=== PATIENT | male | born 1950 | race Two or more races ===

== ENCOUNTER 2024-06-08 10:11 | Emergency (ER) | payer OTHER ==
[~2024-06-08] VITALS: Ht 182.9 cm; Wt 66.3 kg
[2024-06-08 10:30] VITALS: RESP 16; TEMP 98.1; O2SAT 98
[2024-06-08 10:45] LABS: Basophils # (auto) 0 10 ^3/uL (0-0.2); Basophils % (auto) 0.3 % (0.0-2.0); Eosinophils # (auto) 0 10 ^3/uL (0-0.8); Eosinophils % (auto) 0.1 % (0.0-7.0); Hematocrit 42.7 % (41.0-53.0); Hemoglobin 14.6 g/dL (13.5-17.5); Lymphocytes % (auto) 15.3 % (10.0-50.0); Mean Corpuscular Hemoglobin 31.5 pg (28.0-32.0); Mean Corpuscular Hgb Conc. 34.2 g/dL (32.0-36.0); Mean Corpuscular Volume 91.9 fL (80.0-100.0); Monocytes # (auto) 0.4 10 ^3/uL (0-1.3); Monocytes % (auto) 6.4 % (0.0-12.0); Neutrophils # (auto) 4.9 10 ^3/uL (1.6-8.6); Neutrophils % (auto) 77.9 % (37.0-80.0); Platelet Count (auto) 130 10^3/uL (140-450); Red Blood Cells 4.65 10^6/uL (4.5-5.90); Red Cell Distribution Width 14.1 % (11.8-14.3); White Blood Cell 6.3 10^3/uL (4.4-10.8)
[2024-06-08 10:58] LABS: Alanine Aminotransferase 18 U/L (7-40); Albumin 4.4 g/dL (3.2-4.8); Alkaline Phosphatase 68 U/L (46-116); Anion Gap 6 (5-15); Aspartate Aminotransferase 21 U/L (13-40); BUN/Creatinine Ratio 14.9 (10.0-20.0); Bilirubin, Total 0.8 mg/dL (0.2-1.0); Blood Urea Nitrogen 15 mg/dL (9-23); Calcium 9.4 mg/dL (8.7-10.4); Carbon Dioxide 26 mmol/L (20-30); Chloride 107 mmol/L (98-107); Glucose 133 mg/dL (74-106); Potassium 4.4 mmol/L (3.5-5.1); Sodium 139 mmol/L (136-145); Total Protein 6.6 g/dL (5.7-8.2)
[2024-06-08 12:00] VITALS: BP 121/79; PULSE 87; RESP 16; O2SAT 98
== END 2024-06-08 14:27 | disposition home or self-care (01) ==
LOC: EDBD 10:11 → ER 10:17
DX: I48.91 Unspecified atrial fibrillation (principal); R79.89 Other specified abnormal findings of blood chemistry; I10 Essential (primary) hypertension
CPT/HCPCS: 36415; 71045; 80053; 83735; 84443; 84484; 85025; 93005

== ENCOUNTER 2025-05-07 07:45 | Inpatient (IN) | payer OTHER ==
[~2025-05-07] VITALS: Ht 185.4 cm; Wt 63.1 kg
[~2025-05-07 07:45] MED LIST: DABI150C7 PO; LOS25T PO; METO25TA5 PO
--- NOTE | 2025-05-07 07:50 | ED.PDOC ---
HPI Comments 75-year-old male presents here with palpitations and chest discomfort. He states the palpitations woke him up from his sleep. He states his heart was beating fast. He has a known history of atrial fibrillation and is currently on metoprolol and Pradaxa. He has a [place] member. He states he has been on this medication fo 1 year and has not had an issues until this morning. He has been compliant with his medications. Denies any recent cough cold runny nose fever or chills. He had some chest discomfort during the palpitations but states it was mild and has self-resolved. He states the palpitations have since resolved and he currently feels well. He plans to make an appointment with his [place] branch general manager later this week. Chief Complaint: Palpitations Time Seen by MD: 07:50 Primary Care Provider: KADI Reviewed Notes: Nurses Notes, Medications, Allergies Allergies: Coded Allergies: NO KNOWN ALLERGIES (Unverified , 06/08/24) Information Source: Patient Mode of Arrival: Ambulatory Severity: Moderate Duration: Since onset Prehospital treatment: None Location: Chest (L) Radiation: No Radiation Onset: At Rest Cardiac Risk Factors: HTN PE Risk Factors: None History of: None Modifying Factors: Nothing Associated Signs and Symptoms: None Past Medical History PAST MEDICAL HISTORY: AFIB, HTN Surgical History: Denies all surgeries Family History Family History: Reviewed,noncontributory to illness Social History Smoker: Non-Smoker Alcohol: Denies ETOH Use Drugs: Denies Drug Use Lives In: Home Constitutional: denies: chills, diaphoresis, fatigue, fever, malaise, sweats, weakness, others EENTM: denies: blurred vision, double vision, ear bleeding, ear discharge, ear drainage, ear pain, ear ringing, eye pain, eye redness, hearing loss, mouth pain, mouth swelling, nasal discharge, nose bleeding, nose congestion, nose pain, photophobia, tearing, throat pain, throat swelling, voice changes, others Respiratory: denies: cough, hemoptysis, orthopnea, SOB at rest, shortness of breath, SOB with excertion, stridor, wheezing, others Cardiovascular: reports: chest pain, palpitations; denies: dizzy spells, diaphoresis, Dyspnea on exertion, edema, irregular heart beat, left arm pain, lightheadedness, PND, syncope, others Gastrointestinal: denies: abdomen distended, abdominal pain, blood streaked bowels, constipated, diarrhea, dysphagia, difficulty swallowing, hematemesis, melena, nausea, poor appetite, poor fluid intake, rectal bleeding, rectal pain, vomiting, others Genitourinary: denies: burning, dysuria, flank pain, frequency, hematuria, incontinence, penile discharge, penile sore, pain, testicle pain, testicle swelling, urgency, others Neurological: denies: dizziness, fainting, headache, left sided numbness, left sided weakness, numbness, paresthesia, pre-existing deficit, right sided numbness, right sided weakness, seizure, speech problems, tingling, tremors, w eakness, others Musculoskeletal: denies: back pain, gout, joint pain, joint swelling, muscle pain, muscle stiffness, neck pain, others Integumetry: denies: bruises, change in color, change in hair/nails, dryness, laceration, lesions, lumps, rash, wounds, others Allergic/Immunocompromised: denies: Difficulty Healing, Frequent Infections, Hives, Itching, others Hematologic/Lymphatic: denies: anemia, blood clots, easy bleeding, easy bruising, swollen glands, others Endocrine: denies: excessive hunger, excessive sweating, excessive thirst, excessive urination, flushing, intolerance to cold, intolerance to heat, unexplained weight gain, unexplained weight loss, others Psychiatric: denies: anxiety, bipolar disorder, depression, hopeless, panic disorder, schizophrenia, sleepless, suicidal, others All Other Systems: Reviewed and Negative Physical Exam General Appearance: No Apparent Distress, Normal HEENT: Normal ENT Inspection, Pharynx Normal Neck: Full Range of Motion, Non-Tender, Normal, Normal Inspection Respiratory: Chest Non-Tender, Lungs Clear, No Accessory Muscle Use, No Respiratory Distress, Normal Breath Sounds Cardiovascular: No Edema, No Murmur, No Gallop, Normal Peripheral Pulses, Regular Rate/Rhythm Breast Exam: Deferred Gastrointestinal: No Organomegaly, Non Tender, No Pulsatile Mass, Normal Bowel Sounds, Soft Genitalia: Deferred Pelvic: Deferred Rectal: Deferred Extremities: No calf tenderness, Normal capillary refill, Normal inspection, Normal range of motion, Non-tender, No pedal edema Musculoskeletal : Apperance: Normal Neurologic: Alert, No Motor Deficits, Normal Affect, Normal Mood, No Sensory Deficits Cerebellar Function: Normal Reflexes: Normal Skin: Dry, Normal Color, Warm Lymphatic: No Adenopathy EKG EKG #1: Comments Rate of 95 sinus rhythm left ventricular hypertrophy nonspecific ST changes EKG #2: Comments EKG 2. Rate of 81 normal sinus rhythm no significant ST changes Was a procedure done? Was a procedure done?: No CP Differential Dx Differential Diagnosis: A-fib, A-Flutter, Angina, AV Block 1st Degree, AV Block 2nd Degree, AV Block 3rd Degree, Electrolyte Disorder, PSVT, Pulmonary Embolus, Sinus Tachycardia, Other (nstemi) Differential Diagnosis: N/A Differential Diagnosis: Chest Wall Pain, Myocardial Infarction, Pneumonia, Pneumothorax, Pulmonary Embolus, Other X-Ray, Labs, Meds, VS Vital Signs Date Time Temp Pulse Resp B/P (MAP) Pulse Ox O2 Delivery O2 Flow Rate FiO2 05/07/25 09:25 94 18 145/80 (101) 98 05/07/25 09:25 94 18 98 Room Air 05/07/25 08:56 81 05/07/25 07:54 95 05/07/25 07:47 98.0 89 15 107/70 97 98.0 Lab Test 05/07/25 11:05 05/07/25 09:06 05/07/25 08:05 Range/Units Troponin I High Sensitivity 186 *H 71 *H 39 </=54 ng/L White Blood Count 6.0 4.4-10.8 10^3/uL Red Blood Count 5.00 4.5-5.90 10^6/uL Hemoglobin 15.3 13.5-17.5 g/dL Hematocrit 45.4 41.0-53.0 % Mean Corpuscular Volume 90.6 80.0-100.0 fL Mean Corpuscular Hemoglobin 30.6 28.0-32.0 pg Mean Corpuscular Hemoglobin Concent 33.7 32.0-36.0 g/dL Red Cell Distribution Width 13.8 11.8-14.3 % Platelet Count 145 140-450 10^3/uL Mean Platelet Volume 9.2 6.9-10.8 fL Neutrophils (%) (Auto) 75.6 37.0-80.0 % Lymphocytes (%) (Auto) 17.2 10.0-50.0 % Monocytes (%) (Auto) 6.5 0.0-12.0 % Eosinophils (%) (Auto) 0.2 0.0-7.0 % Basophils (%) (Auto) 0.5 0.0-2.0 % Neutrophils # (Auto) 4.5 1.6-8.6 10 ^3/uL Lymphocytes # (Auto) 1.0 0.4-5.4 10 ^3/uL Monocytes # (Auto) 0.4 0-1.3 10 ^3/uL Eosinophils # (Auto) 0 0-0.8 10 ^3/uL Basophils # (Auto) 0 0-0.2 10 ^3/uL Nucleated Red Blood Cells 0.2 % Sodium Level 139 136-145 mmol/L Potassium Level 4.3 3.5-5.1 mmol/L Chloride Level 105 98-107 mmol/L Carbon Dioxide Level 23 20-31 mmol/L Anion Gap 11 5-15 Blood Urea Nitrogen 9 9-23 mg/dL Creatinine 1.08 0.700-1.30 mg/dL Glomerular Filtration Rate Calc 71 >90 mL/min BUN/Creatinine Ratio 8.3 L 10.0-20.0 Serum Glucose 123 H 74-106 mg/dL Calcium Level 9.5 8.7-10.4 mg/dL Magnesium Level 2.1 1.6-2.6 mg/dL 75-year-old male presents here with a palpitations and chest discomfort. He has a known history of atrial fibrillation and states the palpitations woke him up from sleep this morning. His EKG at this time does not demonstrate that he has AFib. Clinically he also feels well no longer has palpitations. I have ordered a CBC, BMP and magnesium level to determine his electrolyte levels to see if any need repletion. CBC has returned normal BMP within normal limits however 1st set troponin is 39, 2nd is 71 and 3rd is 186. I have spoken to [facility] spoke to Dr. Huff at [facility] who has agreed for us to admit the patient in our hospital Authorization number is [id number]. Magnesium level is normal. Does not require repletion. Chest x-ray with no evidence of acute pathology. Patient has been given aspirin in the ER. Time of 1ST Reevaluation: 08:20 Reevaluation 1ST: Unchanged Time of 2ND Reevaluation: 12:00 Reevaluation 2ND: Unchanged Patient Education/Counseling: Diagnosis, Treatment Family Education/Counseling: No Family Present SEPSIS Sepsis Screen Physician Orders Electrocardigram (05/07/25 10:53) Chest Two Views Routine (05/07/25 11:50) Aspirin Tablet (05/07/25 12:00) Vital Signs Date Time Temp Pulse Resp B/P (MAP) Pulse Ox O2 Delivery O2 Flow Rate FiO2 05/07/25 09:25 94 18 145/80 (101) 98 05/07/25 09:25 94 18 98 Room Air 05/07/25 08:56 81 05/07/25 07:54 95 05/07/25 07:47 98.0 89 15 107/70 97 98.0 Laboratory Tests Test 05/07/25 08:05 White Blood Count 6.0 10^3/uL (4.4-10.8) Departure 1 Departure Time of Disposition: 12:04 Impression: Primary Impression: Atrial fibrillation Qualified Codes: I48.0 - Paroxysmal atrial fibrillation Additional Impression: NSTEMI (non-ST elevated myocardial infarction) Disposition: ADMITTED INPATIENT Condition: Guarded Additional Instructions: Follow up with the [place] branch general manager this week. Return to the ER if symptoms worsen or persist. Critical Care Note Critical Care Time?: Yes (35 min-critical care time only) Critical care comment: Time spent re-evaluating patient, speaking to nursing staff, speaking to laboratory regarding his elevated troponins., consulting Cardiology, speaking to [place] re-evaluating results including lab Stability Stability form required: No Heart Score Heart Score: Heart Score Response (Comments) Value History Slightly Suspicious 0 EKG Repolarization Disturb 1 Age >65 2 Risk Factors 1 or 2 risk factors 1 Troponin >3 x's Normal limit 2 Total 6 I personally scribed for MADDY LINTON MD ([email or web address]) on 05/07/25 at 07:50. Electronically submitted by Ania Mendoza ([email or web address]). I personally scribed for MADDY LINTON MD ([email or web address]) on 05/07/25 at 07:52. Electronically submitted by Ania Mendoza ([email or web address]). I personally scribed for MADDY LINTON MD ([email or web address]) on 05/07/25 at 07:54. Electronically submitted by Ania Mendoza ([email or web address]). I personally scribed for MADDY LINTON MD ([email or web address]) on 05/07/25 at 08:05. Electronically submitted by Ania Mendoza ([email or web address]). MADDY LINTON MD May 07, 2025 07:50
--- NOTE | 2025-05-07 07:55 | ECG ---
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
[2025-05-07 08:24] LABS: Hematocrit 45.4 % (41.0-53.0); Hemoglobin 15.3 g/dL (13.5-17.5); Mean Corpuscular Hemoglobin 30.6 pg (28.0-32.0); Mean Corpuscular Volume 90.6 fL (80.0-100.0); Nucleated Red Blood Cells % 0.2 %
[2025-05-07 08:50] LABS: Anion Gap 11 (5-15); Carbon Dioxide 23 mmol/L (20-31); Chloride 105 mmol/L (98-107); Potassium 4.3 mmol/L (3.5-5.1); Sodium 139 mmol/L (136-145)
[2025-05-07 08:51] LABS: Calcium 9.5 mg/dL (8.7-10.4)
[2025-05-07 08:56] LABS: BUN/Creatinine Ratio 8.3 (10.0-20.0); Blood Urea Nitrogen 9 mg/dL (9-23); Glucose 123 mg/dL (74-106); Magnesium 2.1 mg/dL (1.6-2.6)
--- NOTE | 2025-05-07 08:57 | ECG ---
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
--- NOTE | 2025-05-07 12:12 | DVH ---
CHEST RADIOGRAPH Indication: chest pain Technique: Frontal and lateral view of the chest was obtained Comparison: XY CHEST PORTABLE on DOS: 06/08/24 FINDINGS: Lines and Tubes: None Lungs: Lungs are hyperinflated suggestive of COPD. Pleura: No effusion. No pneumothorax. Cardiomediastinal contours: Unremarkable Bones: Unremarkable IMPRESSION: Lungs are hyperinflated suggestive of COPD. There is no consolidation, pneumothorax or effusion.
[2025-05-07] MEDS ORDERED: ROSU20TA56 PO (13:33)
--- NOTE | 2025-05-07 13:37 | DVHHP2 ---
History of Present Illness Reason for Visit: Chest palpitations History of Present Illness 78-year-old male with past medical history of hypertension, atrial fibrillation on Pradaxa and metoprolol, and hyperlipidemia presents to the ED with complaint of palpitations. The patient reports that he woke up this morning with a sens ation of chest palpitations, which prompted his visit to the ER. He denies associated chest pain, shortness of breath, dizziness, syncope, or diaphoresis. He denies cough, fever, or recent illnesses. He reports compliance with his medications. He denies tobacco use, alcohol, or illicit drug use. Past Medical History As stated in HPI Past Surgical History Abdominal surgery from an injury Family History Reviewed, non-contributory to the management of this case. Past Social History The patient lives at home, denies smoking, alcohol or illicit drugs abuse. Review of Systems Constitutional: No: Fever, Chills, Sweats, Weakness, Malaise, Other Eyes: No: Pain, Vision change, Conjunctivae inflammation, Eyelid inflammation, Other, Redness ENT: No: Ear pain, Ear discharge, Nose pain, Nose discharge, Nose congestion, Mouth pain, Mouth swelling, Throat pain, Throat swelling, Other Respiratory: No: Cough, Dry, Shortness of breath, SOB with excertion, Wheezing, Hemoptysis, Pleuritic Pain, Sputum, Wheezing, Other Cardiovascular: Palpitations; No: Chest Pain, Orthopnea, Paroxysmal Noc. Dyspnea, Edema, Lt Headedness, Other Gastrointestinal: No: Nausea, Vomiting, Abdominal Pain, Diarrhea, Constipation, Melena, Hematochezia, Other Genitourinary: No Dysuria, No Frequency, No Incontinence, No Hematuria, No Retention, No Other Musculoskeletal: No: other, neck pain, shoulder pain, arm pain, back pain, hand pain, leg pain, foot pain Skin: No: Rash, Lesions, Jaundice, Bruising, Other Neurological: No: Weakness, Numbness, Incoordination, Change in speech, Confusion, Seizures, Other Allergies: Coded Allergies: NO KNOWN ALLERGIES (Unverified , 06/08/24) Exam Vital Signs Vital Signs Date Time Temp Pulse Resp B/P (MAP) Pulse Ox O2 Delivery O2 Flow Rate FiO2 05/07/25 12:40 97.7 72 18 134/74 (94) 96 97.7 05/07/25 09:25 Room Air General Appearance: Alert, Oriented X3, Cooperative, No acute distress HEENT: Atraumatic, PERRLA, EOMI Respiratory: Clear to auscultation, Normal air movement Cardiovascular: Regular rate, Normal S1, Normal S2 Abdominal: Normal bowel sounds, No tenderness Extremities: No clubbing, No cyanosis, No edema, Normal pulses Skin: No rashes, No breakdown, No significant lesion Neuro: Normal gait, Normal speech, Strength at 5/5 X4 ext Psych/Mental Status: Mental status NL Labs/Xrays Labs Test 05/07/25 11:05 05/07/25 08:05 Range/Units Troponin I High Sensitivity 186 *H </=54 ng/L White Blood Count 6.0 4.4-10.8 10^3/uL Red Blood Count 5.00 4.5-5.90 10^6/uL Hemoglobin 15.3 13.5-17.5 g/dL Hematocrit 45.4 41.0-53.0 % Mean Corpuscular Volume 90.6 80.0-100.0 fL Mean Corpuscular Hemoglobin 30.6 28.0-32.0 pg Mean Corpuscular Hemoglobin Concent 33.7 32.0-36.0 g/dL Red Cell Distribution Width 13.8 11.8-14.3 % Platelet Count 145 140-450 10^3/uL Mean Platelet Volume 9.2 6.9-10.8 fL Neutrophils (%) (Auto) 75.6 37.0-80.0 % Lymphocytes (%) (Auto) 17.2 10.0-50.0 % Monocytes (%) (Auto) 6.5 0.0-12.0 % Eosinophils (%) (Auto) 0.2 0.0-7.0 % Basophils (%) (Auto) 0.5 0.0-2.0 % Neutrophils # (Auto) 4.5 1.6-8.6 10 ^3/uL Lymphocytes # (Auto) 1.0 0.4-5.4 10 ^3/uL Monocytes # (Auto) 0.4 0-1.3 10 ^3/uL Eosinophils # (Auto) 0 0-0.8 10 ^3/uL Basophils # (Auto) 0 0-0.2 10 ^3/uL Nucleated Red Blood Cells 0.2 % Sodium Level 139 136-145 mmol/L Potassium Level 4.3 3.5-5.1 mmol/L Chloride Level 105 98-107 mmol/L Carbon Dioxide Level 23 20-31 mmol/L Anion Gap 11 5-15 Blood Urea Nitrogen 9 9-23 mg/dL Creatinine 1.08 0.700-1.30 mg/dL Glomerular Filtration Rate Calc 71 >90 mL/min BUN/Creatinine Ratio 8.3 L 10.0-20.0 Serum Glucose 123 H 74-106 mg/dL Hemoglobin A1c 5.3 <5.7 % A1C Calcium Level 9.5 8.7-10.4 mg/dL Magnesium Level 2.1 1.6-2.6 mg/dL PROCEDURE(s): CXR2 - CHEST TWO VIEWS ROUTINE REASON: chest pain ORDER NUMBER(s): [id number], ACCESSION NUMBER(s): [id number] CHEST RADIOGRAPH Indication: chest pain Technique: Frontal and lateral view of the chest was obtained Comparison: XY CHEST PORTABLE on DOS: 06/08/24 FINDINGS: Lines and Tubes: None Lungs: Lungs are hyperinflated suggestive of COPD. Pleura: No effusion. No pneumothorax. Cardiomediastinal contours: Unremarkable Bones: Unremarkable IMPRESSION: Lungs are hyperinflated suggestive of COPD. SEPSIS Sepsis Screen Date sepsis recognized/suspect: May 07, 2025 Time Sepsis recognized/suspect: 0751 Recent Procedure: No On Antibiotic Therapy: No Respiratory Rate >20: No Heart Rate >90: No Temp<36 C (96.8 F) or >38.3 C: No SBP <90 or MAP <65 mmHG: No New Acute Mental Status Change: No Is the patient on CPAP, BIPAP,: No Physician Orders Electrocardigram (05/07/25 10:53) Chest Two Views Routine (05/07/25 11:50) Urinalysis (05/07/25 12:46) Drug Screen (05/07/25 12:46) Echo 2d Mode Cardiac Dop (05/07/25 12:46) Alanine Aminotransferase (05/07/25 12:46) Aspartate Amino Transferase (05/07/25 12:46) Thyroid Stimulating Hormone (05/07/25 12:46) Lipid Panel (05/07/25 12:46) Metoprolol Tartrate Tablet (Lopressor Ta (05/07/25 22:00) Losartan Tablet (Cozaar Tablet) (05/08/25 10:00) Aspirin Tablet (05/08/25 10:00) * Cardiology Consult (05/07/25 13:30) B-Type Natriuretic Peptide (05/07/25 13:30) (Nf) Rosuvastatin Calcium (05/07/25 22:00) Admit (05/07/25 13:33) Code Status (05/07/25 13:33) Hydrocodone-Acet 5/325mg Tab ([place] 5/32 (05/07/25 13:45) Ondansetron Hcl (Zofran) (05/07/25 13:45) Fall Risk Precautions In Place QSHIFT (05/07/25 13:33) Complete Blood Count (05/08/25 04:00) Comprehensive Metabolic Panel (05/08/25 04:00) Cardiac Diet-2gna,Lofat,Lochol (05/07/25 Dinner) Condition: Fair (05/07/25 13:33) Acetaminophen Tablet (Tylenol Tablet) (05/07/25 13:45) Morphine Sulfate Injection (05/07/25 13:45) Nitroglycerin Sublingual (Ntrostat Subli (05/07/25 13:45) Morphine Sulfate Injection (05/07/25 13:45) Stat Ekg For Chest Pain (05/07/25 13:33) Notify Md Of Changes From Base (05/07/25 13:33) Dolly Driver For 24 Hours (05/07/25 13:33) Emergency Dysrhythmia Protocol (05/07/25 13:33) Rhythm Strips Once Every Shift (05/07/25 13:33) Oxygen By Nasal Cannula (05/07/25 13:33) Enoxaparin Sodium (Lovenox) (05/07/25 22:00) Vital Signs Date Time Temp Pulse Resp B/P (MAP) Pulse Ox O2 Delivery O2 Flow Rate FiO2 05/07/25 12:40 97.7 72 18 134/74 (94) 96 97.7 05/07/25 09:25 94 18 145/80 (101) 98 05/07/25 09:25 94 18 98 Room Air 05/07/25 08:56 81 05/07/25 07:54 95 05/07/25 07:47 98.0 89 15 107/70 97 98.0 Laboratory Tests Test 05/07/25 08:05 White Blood Count 6.0 10^3/uL (4.4-10.8) Medications Medications Dose Ordered Sig/Nolan Route Start Time Stop Time Status Last Admin Dose Admin Aspirin 325 mg ONCE ONCE PO 05/07/25 12:00 05/07/25 12:01 DC 05/07/25 12:39 325 MG Assessment/Plan Assessment/Plan # NSTEMI # Rule out CAD/ACS * Admit to telemetry unit * ACS protocol * Monitor troponin and EKG * Continue statins and aspirin * Echo * Cardiology consult # Possible transient afib with rvr, Paroxysmal Afib, currently sinus rhythm * Hold Pradaxa until seen by Cardiology--- Therapeutic Lovenox * Continue metoprolol * Monitor electrolytes and replete prn * Check TSH, lipid panel, a1c, ua, uds #possible COPD as seen and chest x-ray * Monitor # Hypertension * Continue antihypertensive medications * Monitor * DASH Diet DVT prophylaxis Medical plan discussed with patient Plan discussed with: Patient My Orders Orders - INESSA DAVIS Procedure Category Date Status Time Urinalysis LAB 05/07/25 Logged 12:46 Drug Screen LAB 05/07/25 Logged 12:46 Echo 2d Mode Cardiac US 05/07/25 Logged DOP 12:46 Alanine LAB 05/07/25 Logged Aminotransferase 12:46 Aspartate Amino LAB 05/07/25 Logged Transferase 12:46 Thyroid Stimulating LAB 05/07/25 Logged Hormone 12:46 Lipid Panel LAB 05/07/25 Logged 12:46 Metoprolol Tartrate PHA 05/07/25 Logged Tablet (Lopressor Ta 22:00 Losartan Tablet PHA 05/08/25 Logged (Cozaar Tablet) 10:00 Aspirin Tablet PHA 05/08/25 Logged 10:00 * Cardiology Consult CONS 05/07/25 Transmitted 13:30 B-Type Natriuretic LAB 05/07/25 Logged Peptide 13:30 (Nf) Rosuvastatin PHA 05/07/25 Logged Calcium 22:00 Admit ADMIT 05/07/25 Verified 13:33 Code Status CODE 05/07/25 Verified 13:33 Hydrocodone-Acet PHA 05/07/25 Verified 5/325mg Tab ([place] 13:45 Ondansetron Hcl PHA 05/07/25 Verified (Zofran) 13:45 Fall Risk Precautions DOMINIQUE 05/07/[address] 13:33 Complete Blood Count LAB 05/08/25 Verified 04:00 Comprehensive LAB 05/08/25 Verified Metabolic Panel 04:00 Cardiac DIET 05/07/25 Verified Diet-2gna,Lofat,Lochol Dinner Condition: Fair [facility] 05/07/25 Verified 13:33 Acetaminophen Tablet PHA 05/07/25 Verified (Tylenol Tablet) 13:45 Morphine Sulfate PHA 05/07/25 Verified Injection 13:45 Nitroglycerin PHA 05/07/25 Verified Sublingual (Ntrostat 13:45 Morphine Sulfate [facility] 05/07/25 Verified Injection 13:45 Stat Ekg For Chest [facility] 05/07/25 Verified Pain 13:33 Notify Md Of Changes [facility] 05/07/25 Verified From Base 13:33 Dolly Driver For [facility] 05/07/25 Verified 24 Hours 13:33 Emergency Dysrhythmia [facility] 05/07/25 Verified Protocol 13:33 Rhythm Strips Once [facility] 05/07/25 Verified Every Shift 13:33 Oxygen By Nasal RT 05/07/25 Verified Cannula 13:33 Enoxaparin Sodium [facility] 05/07/25 Verified (Lovenox) 22:00 Date of Service: May 07, 2025 Billing Provider: INESSA DAVIS Common Visit Codes: [id number] INP/OBS CARE (HIGH) Consultation Codes: [id number] CONSULT <45MIN INESSA DAVIS May 07, 2025 13:37
[2025-05-07] MEDS ORDERED: ACETAMINOPHEN 325 MG TAB PO PRN (13:45)
[2025-05-07] MEDS ORDERED: HYDROcodone-ACET 5/325MG TAB PO PRN (13:45)
[2025-05-07] MEDS ORDERED: MORPHINE SULFATE INJ 2 MG/ml SYRG IV PRN ×2 (13:45)
[2025-05-07] MEDS ORDERED: NITROGLYCERIN 0.4 MG SL TAB SL PRN (13:45)
[2025-05-07] MEDS ORDERED: ONDANSETRON HCL 4 MG/2 ML VIAL IV PRN (13:45)
[2025-05-07 14:11] LABS: Alanine Aminotransferase 24 U/L (7-40); Cholesterol 122 mg/dL (< 200); Triglycerides 51 mg/dL (< 150)
[2025-05-07 14:25] LABS: HDL Cholesterol 65 mg/dL (40-59)
--- NOTE | 2025-05-07 14:35 | DVHINCON2 ---
Date Seen: May 07, 2025 Referring Physician KADEN Marie Reason for Consultation Elevated troponin History of Present Illness This is a 75-year-old male patient who presents to the emergency room with chief complaint of palpitations. The patient reports that the palpitations began at approximately midnight today. He decided to come to the emergency room for further evaluation. At the time of assessment, the patient denies any palpitations. Cardiology has been consulted at this time for elevated troponin level. Initial twelve lead electrocardiogram reveals normal sinus rhythm with left ventricular hypertrophy. Initial troponin level of 39ng/L with up trend and current peak level of 186ng/L. Significant past medical history includes paroxysmal atrial fibrillation (on Pradaxa and metoprolol), hypertension, and dyslipidemia. He reports compliance with all prescribed medications. The patient follows up with a ethnographer in the [facility]. Past Medical History Past medical history reviewed. No other significant than mentioned above. Past Surgical History Denies Family History Family history reviewed. Social History Denies the use of tobacco, alcohol or illicit drugs. Allergies: Coded Allergies: NO KNOWN ALLERGIES (Unverified , 06/08/24) Home Meds Reported Medications Rosuvastatin Calcium (Rosuvastatin Calcium) 20 Mg Tab, 1 TAB PO HS 05/07/25 Home Meds Home medications reviewed. Current Medications Current Medications Medications (Trade) Dose Ordered Sig/Nolan Route PRN Reason Start Time Stop Time Status Last Admin Metoprolol Tartrate (Lopressor Tablet) 25 mg BID PO 05/07/25 22:00 Losartan Potassium (Cozaar Tablet) 25 mg DAILY PO 05/08/25 10:00 Aspirin 81 mg DAILY PO 05/08/25 10:00 Patient Own Medication 1 tab HS PO 05/07/25 22:00 UNV Acetaminophen/ Hydrocodone Bitart (Golf 5/325MG Tab) 1 tab Q4HP PRN PO MODERATE PAIN (4-6 PAIN SCALE) 05/07/25 13:45 Ondansetron HCl (Zofran) 4 mg Q4HP PRN IV NAUSEA / VOMITING 05/07/25 13:45 Acetaminophen (Tylenol Tablet) 650 mg Q6HP PRN PO PAIN SCALE 1-3 OR TEMP>100.4 05/07/25 13:45 Morphine Sulfate 2 mg Q4HPRN PRN IV SEVERE PAIN (7-10 PAIN SCALE) 05/07/25 13:45 Nitroglycerin (Ntrostat Sublingual) 0.4 mg Q5MINP PRN SL FOR CHEST PAIN 05/07/25 13:45 Morphine Sulfate 2 mg Q30M PRN IV FOR CHEST PAIN 05/07/25 13:45 Enoxaparin Sodium (Lovenox) 70 mg Q12HR SC 05/07/25 22:00 UNV Review of Systems Constitutional: No symptom reported Ears, Nose, & Throat: No symptom reported Eyes: No symptom reported Neurological: No symptoms reported Pulmonary/Respiratory: Palpitations Cardiovascular: No symptom reported Gastrointestinal: No symptom reported Genitourinary: No symptom reported Musculoskeletal: No symptom reported Skin: No symptom reported Psychiatric: No symptom reported Endocrine: No symptom reported Hematologic/Lymphatic: No symptom reported Vital Signs Vital Signs Date Time Temp Pulse Resp B/P (MAP) Pulse Ox O2 Delivery O2 Flow Rate FiO2 05/07/25 12:40 97.7 72 18 134/74 (94) 96 97.7 05/07/25 09:25 Room Air Physical Exam General Appearance: Cooperative. Well-developed. Well-nourished. No acute distress. Pulmonary/Respiratory: Clear, bilateral breaths sounds. Cardiovascular/Chest: Regular rate and rhythm. Peripheral Pulses: 2+ Radial (R). 2+ Radial (L). 2+ Pedal (R). 2+ Pedal (L) Abdominal Exam: Normal bowel sounds. Ankle Exam: Negative ankle edema Lower extremities: Negative lower extremity edema Neuro/Mental Status: A/OX4, coherent. Thoughts/Psych: Normal thought pattern. Appropriate mood and affect. Good judgment and insight. Appearance: No acute distress. Skin Exam: Normal inspection. Normal color. Warm and dry. Labs/Diagnostic Data Labs Test 05/07/25 14:05 05/07/25 13:55 05/07/25 11:05 05/07/25 08:05 Range/Units Aspartate Amino Transferase (AST) 32 13-40 U/L Alanine Aminotransferase (ALT) 24 7-40 U/L Triglycerides Level 51 < 150 mg/dL Cholesterol Level 122 < 200 mg/dL LDL Cholesterol 47 < 100 mg/dL HDL Cholesterol 65 H 40-59 mg/dL White Blood Count 6.0 4.4-10.8 10^3/uL Red Blood Count 5.00 4.5-5.90 10^6/uL Hemoglobin 15.3 13.5-17.5 g/dL Hematocrit 45.4 41.0-53.0 % Mean Corpuscular Volume 90.6 80.0-100.0 fL Mean Corpuscular Hemoglobin 30.6 28.0-32.0 pg Mean Corpuscular Hemoglobin Concent 33.7 32.0-36.0 g/dL Red Cell Distribution Width 13.8 11.8-14.3 % Platelet Count 145 140-450 10^3/uL Mean Platelet Volume 9.2 6.9-10.8 fL Neutrophils (%) (Auto) 75.6 37.0-80.0 % Lymphocytes (%) (Auto) 17.2 10.0-50.0 % Monocytes (%) (Auto) 6.5 0.0-12.0 % Eosinophils (%) (Auto) 0.2 0.0-7.0 % Basophils (%) (Auto) 0.5 0.0-2.0 % Neutrophils # (Auto) 4.5 1.6-8.6 10 ^3/uL Lymphocytes # (Auto) 1.0 0.4-5.4 10 ^3/uL Monocytes # (Auto) 0.4 0-1.3 10 ^3/uL Eosinophils # (Auto) 0 0-0.8 10 ^3/uL Basophils # (Auto) 0 0-0.2 10 ^3/uL Nucleated Red Blood Cells 0.2 % Sodium Level 139 136-145 mmol/L Potassium Level 4.3 3.5-5.1 mmol/L Chloride Level 105 98-107 mmol/L Carbon Dioxide Level 23 20-31 mmol/L Anion Gap 11 5-15 Blood Urea Nitrogen 9 9-23 mg/dL Creatinine 1.08 0.700-1.30 mg/dL Glomerular Filtration Rate Calc 71 >90 mL/min BUN/Creatinine Ratio 8.3 L 10.0-20.0 Serum Glucose 123 H 74-106 mg/dL Hemoglobin A1c 5.3 <5.7 % A1C Calcium Level 9.5 8.7-10.4 mg/dL Magnesium Level 2.1 1.6-2.6 mg/dL Assessment NSTEMI Paroxysmal atrial fibrillation, stage 3A (on Pradaxa and metoprolol) Rule out structural heart disease Hypertension Dyslipidemia Plan/Recommendation We will continue with the following plan/recommendations (Dr. De Jesus): Case discussed with . We will proceed with obtaining a transthoracic echocardiogram to evaluate cardiac function. Patient has a known history of paroxysmal atrial fibrillation and takes Pradaxa and metoprolol therapy. Continue with prescribed medications. Elevated troponin level suspected to be secondary to tachycardic event prior to emergency room arrival given patient's history of atrial fibrillation. At the time of assessment, the patient is in the emergency room lobby and not connected to any cardiac monitors. Physical exam reveals a regular rate and rhythm. Initiate bottle inspector. Thank you for allowing us to care for this patient. Please call with any questions or concerns. Critical care time spent: 44 minutes This medical document was created using an electronic medical record system with voice recognition software and computerized dictation system. Although this document has been carefully reviewed, there might still be some phonetic and typographical errors. Occasional wrong-word or ``sound-alike substitutions may have occurred due to the inherent limitations of voice recognition software. These areas are purely typographical due to imperfections of the software programs and do not reflect any compromise in the patient's medical care. Please read the chart carefully and recognize, using context, where these substitutions have occurred. Plan discussed with: Patient NYHA Physical activity limitations: NA Date of Service: May 07, 2025 Billing Provider: CINDY LOERA Cardiology Common Codes: 43316-KXGCWFD INP/OBS CARE (High) Cardiology Consultation Codes: 40598-[id number] CONSULT <45MIN CINDY LOERA May 07, 2025 14:35
[2025-05-07 17:43] VITALS: BP 111/63; PULSE 72; RESP 18; TEMP 98.1; O2SAT 95
[2025-05-07 20:00] VITALS: PULSE 60
[2025-05-07 21:00] VITALS: BP 124/77; PULSE 61; RESP 20; TEMP 98.6; O2SAT 98
[2025-05-07] MEDS: ATORVASTATIN 20 MG TAB PO SCH (22:56)
[2025-05-07] MEDS: METOPROLOL TARTRATE 25 MG TAB PO SCH (22:57)
[2025-05-07] MEDS: ENOXAPARIN SOD 100 MG/1 ML SYRINGE SC SCH (22:58)
[2025-05-08] VITALS (8 sets, daily range): BP systolic 126–143; BP diastolic 78–86; PULSE 56–72; RESP 16–20; TEMP 98.1–98.3; O2SAT 96–99
[2025-05-08 06:55] LABS: Urine Protein, UAD Negative (Negative)
[2025-05-08 07:13] LABS: Amphetamine Screen, Urine Neg (NEGATIVE); Barbiturate Scree,Urine Neg (NEGATIVE); Benzodiazephine Screen, Urine Neg (NEGATIVE); Cannabinoid Screen, Urine Neg (NEGATIVE); Cocaine Screen, Urine Neg (NEGATIVE); Opiate Scree,Urine Neg (NEGATIVE); Phencyclidine Screen, Urine Neg (NEGATIVE)
[2025-05-08 07:31] LABS: Hematocrit 42.9 % (41.0-53.0); Hemoglobin 14.8 g/dL (13.5-17.5); Mean Corpuscular Hemoglobin 31.2 pg (28.0-32.0); Mean Corpuscular Volume 90.4 fL (80.0-100.0); Nucleated Red Blood Cells % 0.1 %
[2025-05-08 07:47] LABS: Alanine Aminotransferase 19 U/L (7-40); Albumin 4.5 g/dL (3.2-4.8); Alkaline Phosphatase 58 U/L (46-116); Anion Gap 10 (5-15); BUN/Creatinine Ratio 13.3 (10.0-20.0); Blood Urea Nitrogen 12 mg/dL (9-23); Calcium 9.4 mg/dL (8.7-10.4); Carbon Dioxide 26 mmol/L (20-31); Chloride 105 mmol/L (98-107); Glucose 88 mg/dL (74-106); Potassium 3.9 mmol/L (3.5-5.1); Sodium 141 mmol/L (136-145); Total Protein 6.6 g/dL (5.7-8.2)
[2025-05-08 07:51] LABS: Bilirubin, Total 1.9 mg/dL (0.2-1.0)
[2025-05-08] MEDS: LOSARTAN POTASSIUM 25 MG TAB PO SCH (09:35)
--- NOTE | 2025-05-08 12:08 | DVHPN2 ---
Progress Note Date Seen: May 08, 2025 Medical Necessity Reason Pt with a Central, PICC or Fol: No Subjective Patient reports: No new complaints Review of Systems: HEENT:Normal, CVS:Normal, RESPIRATORY:Normal, GI:Normal, :Normal, MSK:Normal, NEURO:Normal Objective vital signs Vital Sign Date Time Temp Pulse Resp B/P (MAP) Pulse Ox O2 Delivery O2 Flow Rate FiO2 05/08/25 09:35 143/85 05/08/25 09:34 66 05/08/25 09:00 98.3 17 98 98.3 05/08/25 08:00 Room Air* 0 21 Total Intake and Output 05/07/25 05/07/25 05/08/25 15:00 23:00 07:00 Intake Total 150 ml Output Total 0 ml Balance 150 ml medications Current Medications Medications Dose Ordered Sig/Nolan Route Start Time Stop Time Status Last Admin Dose Admin Metoprolol Tartrate 25 mg BID PO 05/07/25 22:00 05/08/25 09:34 25 MG Losartan Potassium 25 mg DAILY PO 05/08/25 10:00 05/08/25 09:35 25 MG Aspirin 81 mg DAILY PO 05/08/25 10:00 05/08/25 09:34 81 MG Atorvastatin Calcium 40 mg HS PO 05/07/25 22:00 05/07/25 22:56 40 MG Acetaminophen/ Hydrocodone Bitart 1 tab Q4HP PRN PO 05/07/25 13:45 Ondansetron HCl 4 mg Q4HP PRN IV 05/07/25 13:45 Acetaminophen 650 mg Q6HP PRN PO 05/07/25 13:45 Morphine Sulfate 2 mg Q4HPRN PRN IV 05/07/25 13:45 Nitroglycerin 0.4 mg Q5MINP PRN SL 05/07/25 13:45 Morphine Sulfate 2 mg Q30M PRN IV 05/07/25 13:45 Enoxaparin Sodium 70 mg Q12HR SC 05/07/25 22:00 05/08/25 09:37 70 MG Examination: GENERAL:Normal, HEENT:Normal, NECK:Normal, LUNGS:Normal, CVS:Normal, ABDOMEN:Normal, MSK:Normal, SKIN:Normal, NEURO:Normal, :Normal laboratory and microbiology Laboratory Tests 05/08/25 06:58 Test 05/08/25 06:58 Range/Units Serum Glucose 88 74-106 mg/dL Problem List/Assessment/Plan Problem List/Assessment/Plan #1 nstemi; await cardio eval #2 htn #3 hyperlipidemia #4 a fib with secondary hypercoagulable state #5 thrombocytopenia; monitor advance care planning- full code- time spent 18 mins Plan discussed with: Patient Date of Service: May 08, 2025 Billing Provider: GRISEL SALAS MD Common Visit Codes: [id number] INP/OBS CARE(HIGH) Secondary Visit Codes: 80080-[id number] CARE PLAN 30 MINUTES GRISEL SALAS MD May 08, 2025 12:08
--- NOTE | 2025-05-08 12:12 | DVHSR ---
APPROVED REPORT EXAM: Two-dimensional and M-mode echocardiogram with Doppler, color Doppler and Bubble Study. Blood Pressure: 126/78 mmHg INDICATION nstemi RISK FACTORS Height: 6'1", Weight: 141 DIMENSIONS LVDd5.1 (3.8-5.7cm)LA (2D)4.0 (1.9-4.0cm)Aortic Root4.2 (2.0-3.7cm) LVDs3.3 (2.5-4.0cm)LA (MM) (1.9-4.0cm)Aortic Cusp Exc2.0 (1.5-2.0cm) EF (%) 64.0 (55-70%)Rt. Atrium6.2 (1.9-4.0cm)Asc. Aorta4.2 cm IVSd1.1 (0.7-1.1cm)RV (D)4.8 (1.8-2.4cm) PWd0.9 (0.7-1.1cm) Mitral Valve MitralMitral Stenosis E wave0.55m/sMV Mean GR.mmHg A wave0.67m/sMV Peak GR.mmHg E/A ratio0.82D MVAcm2 DECEL [id number] 1/2 Timems Aortic Valve Aortic ValveAortic Stenosis V11.20m/Ismael Mean GR.5mmHg V21.36m/Ismael Peak GR.7mmHg LVOT Diameter2.3 (1.8-2.4cm)Doppler AVA3.66cm2 AI P 1/2 Pybq079.27ms Pulmonic Valve V20.71m/s Tricuspid Valve TR Velocity2.33m/s [id number] ATRIA Injection of contrast documented no interatrial shunt. Conclusion lvef 60% normal RV Function biatrial enlargement mild to moderate aortic regurg mild to moderate mitral regurg
--- NOTE | 2025-05-08 16:49 | DVHPN2 ---
Consult Progress Note Date Seen: May 08, 2025 Subjective Review of Systems: CVS:Normal, RESPIRATORY:Normal, NEURO:Normal Other Systems: Denies any cardiac symptoms Objective vital signs Vital Sign Date Time Temp Pulse Resp B/P (MAP) Pulse Ox O2 Delivery O2 Flow Rate FiO2 05/08/25 10:38 67 140/80 05/08/25 09:00 98.3 17 98 98.3 05/08/25 08:00 Room Air* 0 21 Total Intake and Output 05/07/25 05/07/25 05/08/25 14:59 22:59 06:59 Intake Total 150 ml Output Total 0 ml Balance 150 ml medications Current Medications Medications Dose Ordered Sig/Nolan Route Start Time Stop Time Status Last Admin Dose Admin Metoprolol Tartrate 25 mg BID PO 05/07/25 22:00 05/08/25 09:34 25 MG Losartan Potassium 25 mg DAILY PO 05/08/25 10:00 05/08/25 09:35 25 MG Aspirin 81 mg DAILY PO 05/08/25 10:00 05/08/25 09:34 81 MG Atorvastatin Calcium 40 mg HS PO 05/07/25 22:00 05/07/25 22:56 40 MG Acetaminophen/ Hydrocodone Bitart 1 tab Q4HP PRN PO 05/07/25 13:45 Ondansetron HCl 4 mg Q4HP PRN IV 05/07/25 13:45 Acetaminophen 650 mg Q6HP PRN PO 05/07/25 13:45 Morphine Sulfate 2 mg Q4HPRN PRN IV 05/07/25 13:45 Nitroglycerin 0.4 mg Q5MINP PRN SL 05/07/25 13:45 Morphine Sulfate 2 mg Q30M PRN IV 05/07/25 13:45 Enoxaparin Sodium 70 mg Q12HR SC 05/07/25 22:00 05/08/25 09:37 70 MG Examination: LUNGS:Normal, CVS:Normal (NSR), NEURO:Normal laboratory and microbiology Laboratory Tests 05/08/25 06:58 Test 05/08/25 06:58 Range/Units Serum Glucose 88 74-106 mg/dL Problem List/Assessment/Plan Problem List/Assessment/Plan Non ST-elevation myocardial infarction Paroxysmal atrial fibrillation, stage 3A (on Pradaxa and metoprolol) Hypertension Dyslipidemia Plan/Recommendation (Dr. De Jesus) A transthoracic echocardiogram revealed an LVEF of 60% with normal RV function and biatrial enlargement. Currently in a sinus rhythm. Continue Pradaxa and metoprolol therapy. Elevated troponin level suspected to be secondary to tachycardic event prior to emergency room arrival given patient's history of atrial fibrillation. Cardiac stable at this time. There is no further cardiac workup indicated. Kindly call if in need to re-consult. Thank you for allowing us to care for this patient. This medical document was created using an electronic medical record system with voice recognition software and computerized dictation system. Although this document has been carefully reviewed, there might still be some phonetic and typographical errors. Occasional wrong-word or ``sound-alike substitutions may have occurred due to the inherent limitations of voice recognition software. These areas are purely typographical due to imperfections of the software programs and do not reflect any compromise in the patient's medical care. Please read the chart carefully and recognize, using context, where these substitutions have occurred. Plan discussed with: Patient, Other Date of Service: May 08, 2025 Billing Provider: RAMOS FULTON Cardiology Common Codes: [id number] INP/OBS CARE(Mod) RAMOS FULTON May 08, 2025 16:49
[2025-05-09 01:00] VITALS: BP 119/61; PULSE 57; RESP 17; TEMP 97.5; O2SAT 98
[2025-05-09 05:00] VITALS: BP 105/72; PULSE 52; RESP 16; TEMP 97.6; O2SAT 98
[2025-05-09 07:53] LABS: Hematocrit 43.5 % (41.0-53.0); Hemoglobin 14.7 g/dL (13.5-17.5); Mean Corpuscular Hemoglobin 30.8 pg (28.0-32.0); Mean Corpuscular Volume 91.3 fL (80.0-100.0); Nucleated Red Blood Cells % 0.2 %
[2025-05-09 07:59] LABS: Calcium 9.3 mg/dL (8.7-10.4); Chloride 105 mmol/L (98-107); Potassium 3.8 mmol/L (3.5-5.1); Sodium 141 mmol/L (136-145)
[2025-05-09 08:00] VITALS: PULSE 73
[2025-05-09 08:01] LABS: Anion Gap 10 (5-15); Carbon Dioxide 26 mmol/L (20-31)
[2025-05-09 08:06] LABS: BUN/Creatinine Ratio 14.6 (10.0-20.0); Blood Urea Nitrogen 12 mg/dL (9-23)
[2025-05-09 08:26] LABS: Glucose 70 mg/dL (74-106)
[2025-05-09 09:00] VITALS: BP 142/74; PULSE 56; RESP 17; TEMP 97.5; O2SAT 96
--- NOTE | 2025-05-09 09:14 | ECG ---
[facility] Test Date: 2025-05-07 Test Time: 17:48:31 Pat Name: LAURA OROSCO Department: Room: 0295T A Gender: M [employer]anger: BRYSON : 1950 Requested By: CINDY LOERA Order Number: [id number] Reading MD: Maxi Garg Measurements Intervals [place] Rate: 69 P: 73 AK: 170 QRS: -27 QRSD: 95 T: 60 QT: 410 QTc: 440 Interpretive Statements Sinus rhythm Abnormal R-wave progression, early transition Left ventricular hypertrophy Electronically Signed On 05-09-2025 13:23:04 PDT by Maxi Garg Please click the below link to view image of tracing.
--- NOTE | 2025-05-09 11:16 | DVHDS2 ---
Discharge Summary Date of Admission May 07, 2025 at 13:33 Date of Discharge: May 09, 2025 Labs/Diagnostic Data: Laboratory Results Test 05/09/25 06:18 05/08/25 06:58 05/08/25 06:15 05/07/25 14:55 White Blood Count 3.8 10^3/uL (4.4-10.8) Red Blood Count 4.76 10^6/uL (4.5-5.90) Hemoglobin 14.7 g/dL (13.5-17.5) Hematocrit 43.5 % (41.0-53.0) Mean Corpuscular Volume 91.3 fL (80.0-100.0) Mean Corpuscular Hemoglobin 30.8 pg (28.0-32.0) Mean Corpuscular Hemoglobin Concent 33.8 g/dL (32.0-36.0) Red Cell Distribution Width 14.2 % (11.8-14.3) Platelet Count 114 10^3/uL (140-450) Mean Platelet Volume 9.6 fL (6.9-10.8) Neutrophils (%) (Auto) 56.9 % (37.0-80.0) Lymphocytes (%) (Auto) 31.6 % (10.0-50.0) Monocytes (%) (Auto) 9.2 % (0.0-12.0) Eosinophils (%) (Auto) 1.6 % (0.0-7.0) Basophils (%) (Auto) 0.7 % (0.0-2.0) Neutrophils # (Auto) 2.2 10 ^3/uL (1.6-8.6) Lymphocytes # (Auto) 1.2 10 ^3/uL (0.4-5.4) Monocytes # (Auto) 0.4 10 ^3/uL (0-1.3) Eosinophils # (Auto) 0.1 10 ^3/uL (0-0.8) Basophils # (Auto) 0 10 ^3/uL (0-0.2) Nucleated Red Blood Cells 0.2 % Sodium Level 141 mmol/L (136-145) Potassium Level 3.8 mmol/L (3.5-5.1) Chloride Level 105 mmol/L (98-107) Carbon Dioxide Level 26 mmol/L (20-31) Anion Gap 10 (5-15) Blood Urea Nitrogen 12 mg/dL (9-23) Creatinine 0.82 mg/dL (0.700-1.30) Glomerular Filtration Rate Calc 91 mL/min (>90) BUN/Creatinine Ratio 14.6 (10.0-20.0) Serum Glucose 70 mg/dL (74-106) Calcium Level 9.3 mg/dL (8.7-10.4) Total Bilirubin 1.9 mg/dL (0.2-1.0) Aspartate Amino Transferase (AST) 28 U/L (13-40) Alanine Aminotransferase (ALT) 19 U/L (7-40) Alkaline Phosphatase 58 U/L (46-116) Total Protein 6.6 g/dL (5.7-8.2) Albumin 4.5 g/dL (3.2-4.8) Urine Color Light-yellow (Yellow) Urine Clarity Clear (Clear) Urine pH 6.0 (5.0-9.0) Urine Specific [place] 1.012 (1.001-1.035) Urine Protein Negative (Negative) Urine Ketones Negative (Negative) Urine Blood Negative /uL (Negative) Urine Nitrite Negative (Negative) Urine Bilirubin Negative (Negative) Urine Urobilinogen Normal mg/dL (Negative) Urine Leukocyte Esterase Negative /uL (Negative) Urine RBC 4 /hpf (0 - 3) Urine Microscopic WBC 1 /HPF (0-3) Urine Squamous Epithelial Cells None seen /hpf (<5) Urine Bacteria None seen /hpf (None Seen) Urine Glucose Normal mg/dL (Normal) Urine Opiates Screen Neg (NEGATIVE) Urine Fentanyl Screen Neg (NEGATIVE) Urine Barbiturates Screen Neg (NEGATIVE) Urine Phencyclidine Screen Neg (NEGATIVE) Urine Amphetamines Screen Neg (NEGATIVE) Urine Benzodiazepines Screen Neg (NEGATIVE) Urine Cocaine Screen Neg (NEGATIVE) Urine Cannabinoids Screen Neg (NEGATIVE) B-Type Natriuretic Peptide 234.16 pg/mL (0-100) Test 05/07/25 14:05 05/07/25 11:05 05/07/25 08:05 Troponin I High Sensitivity 184 ng/L (</=54) Triglycerides Level 51 mg/dL (< 150) Cholesterol Level 122 mg/dL (< 200) LDL Cholesterol 47 mg/dL (< 100) HDL Cholesterol 65 mg/dL (40-59) Thyroid Stimulating Hormone (TSH) 1.05 uIU/mL (0.55-4.78) Hemoglobin A1c 5.3 % A1C (<5.7) Magnesium Level 2.1 mg/dL (1.6-2.6) Other Laboratory Tests 05/09/25 06:18 Brief Hx & Hospital Course: see dictated note Condition at Discharge: Fair Final Diagnosis/Problems List a fib Discharge Disposition: Home Discharge Instruct/Medications Diet: Cardiac 2g Na,low cholest Activity: No Restrictions, As Tolerated Follow Up/Referral: fu with pcp/cardiology Medications: resume home meds Scheduled Dabigatran Etexilate Mesylate (Dabigatran Etexilate), 1 CAP PO BID, (Reported) Losartan Potassium (Losartan Potassium), 1 TAB PO DAILY, (Reported) Metoprolol Tartrate (Metoprolol Tartrate), 1 TAB PO BID, (Reported) Rosuvastatin Calcium (Rosuvastatin Calcium), 1 TAB PO HS, (Reported) Discharge Statement: "Patient was advised to return to the ER or call 911 if any headaches, dizziness, shortness of breath, chest pain, abdominal pain, bleeding, fevers, or worsening of medical condition. Patient was counseled about treatment plan, medications, possible side effects, patientverbalized understanding. All questions were answered to the best of my ability. This discharge took greater then 30 minutes in planning, reviewing documentation, counseling the patient, and discussing with other team members." ASSESSMENT ASSESSMENT Assessment a fib Date of Service: May 09, 2025 Billing Provider: GRISEL SALAS MD Common Visit Codes: 63038-LJT/OBS DISCH DAY >30min GRISEL SALAS MD May 09, 2025 11:16
--- NOTE | 2025-05-09 11:28 | DVHDS ---
HISTORY OF PRESENT ILLNESS: The patient is a 75-year-old gentleman who is admitted with complaints of palpitations and has history of atrial fibrillation, hypertension, and hyperlipidemia. HOSPITAL COURSE: The patient had elevated troponin levels. The level was highest at 186. He was seen in Cardiology consult by Dr. De Jesus. Echocardiogram done showed ejection fraction of 60%. The patient is now doing well and has been chest pain free. He has been cleared by Cardiology to go home. The patient's chest x-ray showed evidence of COPD. The patient is to resume his home medication at discharge. FINAL DIAGNOSES: * Non-STEMI, likely type 2. * Hypertension. * Hyperlipidemia. * Atrial fibrillation with secondary hypercoagulable state. * Thrombocytopenia. * Likely COPD. Time spent in discharge planning and review of plan with the patient and nursing was 38 minutes. MD SORAIDA Yan/CELESTINO TID: [id number] RECEIPT: [id number]
[2025-05-09 13:00] VITALS: BP 136/74; PULSE 72; RESP 17; O2SAT 96
[2025-05-09 13:05] VITALS: BP 142/74; PULSE 56; RESP 18; TEMP 97.5; O2SAT 96
== END 2025-05-09 15:44 | disposition home or self-care (01) | DRG 281 ==
LOC: ER 07:45 → OVERFLOW 13:33 → TELE-WESTW 17:41
PROVIDERS: ADMIT Internal Medicine; ATTEND Internal Medicine
DX: I48.0 Paroxysmal atrial fibrillation (principal); D68.69 Other thrombophilia; I21.A1 Myocardial infarction type 2; D69.6 Thrombocytopenia, unspecified; J44.9 Chronic obstructive pulmonary disease, unspecified; I10 Essential (primary) hypertension; E78.5 Hyperlipidemia, unspecified
CPT/HCPCS: 36415; 71046; 80048; 80053; 80061; 80307; 81001; 83036; 83735; 83880; 84443; 84450; 84460; 84484; 85025; 93005; 93306; 99291; G0378